=== PATIENT | female | born 1995 | race Two or more races ===

== ENCOUNTER 2020-02-13 10:00 | Inpatient (IN) | payer OTHER ==
[~2020-02-13] VITALS: Ht 152.4 cm; Wt 70.3 kg
[2020-02-25] MEDS ORDERED: PRENATAL TABLE1 EACH PO (16:34)
[2020-02-25] MEDS ORDERED: VISTARIL50 MG PO (16:34)
== END 2020-02-27 09:58 | disposition home or self-care (01) | DRG 807 ==
LOC: LDR 02-25 15:16 → SURG-SUITE 02-25 15:16 → LDR 02-27 10:00
PROVIDERS: ADMIT Obstetrics & Gynecology; ATTEND Obstetrics & Gynecology
PROC: 10E0XZZ Delivery of Products of Conception, External Approach (ICD-10-PCS; principal; 2020-02-25)
PROC: 0KQM0ZZ Repair Perineum Muscle, Open Approach (ICD-10-PCS; 2020-02-25)
PROC: 10907ZC Drainage of Amniotic Fluid, Therapeutic from Products of Conception, Via Natural or Artificial Opening (ICD-10-PCS; 2020-02-25)
PROC: 4A1HXCZ Monitoring of Products of Conception, Cardiac Rate, External Approach (ICD-10-PCS; 2020-02-25)
DX: O70.1 Second degree perineal laceration during delivery (principal); Z37.0 Single live birth; Z20.828 Contact with and (suspected) exposure to other viral communicable diseases; Z3A.39 39 weeks gestation of pregnancy